=== PATIENT | female | born 1995 | race African-American/Black ===

== ENCOUNTER 2019-11-23 18:47 | Emergency (ER) | payer OTHER, SELFPAY ==
[2019-11-23] VITALS (7 sets, daily range): BP systolic 118–138; BP diastolic 73–98; PULSE 85–118; RESP 10–20; TEMP 36.6; O2SAT 100
--- NOTE | ~2019-11-23 | XR_ITS ---
EXAMINATION: XR chest 2V EXAM DATE: 11/23/2019 19:34 INDICATION: Heart palpitations, racing. Weakness. TECHNIQUE: Frontal and lateral projections of the chest obtained and reviewed. There is no prior robert dy for comparison. FINDINGS: The lungs are clear. There are no pleural effusions. The cardiomediastinal silhouette is within normal limits. There is no pneumothorax suspected. The bones and soft tissues are unremarkab le. IMPRESSION: Normal chest x-ray exam. Reviewed, dictated and finalized at location A. IMPRESSION: Normal chest x-ray exam.
--- NOTE | 2019-11-23 18:54 | ECG_ITS ---
Measurements Intervals [place] Rate: 115 P: 57 MD: 169 QRS: 68 QRSD: 87 T: -19 QT: 321 QTc: 445 Interpretive Statements SINUS TACHYCARDIA BORDERLINE ST-T WAVE ABNORMALITY- ANTEROLAT/INF LEADS ABNORMAL ECG Electronically Signed On 11-23-2019 19:37:48 CDT by Kervin Zuluaga D.O.
[2019-11-23 19:05] LABS: Basophils Percent Auto 0.2 % (0.2-1.2); Eosinophils Percent Auto 0.1 % (0-4.4); Hematocrit 36.8 % (37.0-47.0); Hemoglobin 12.6 g/dL (12.0-15.0); Immature Granulocyte Absolute 0.03 K/mm3 (0.00-0.031); Immature Granulocyte Percent A 0.3 % (0-0.5); Lymphocytes Absolute Auto 1.75 K/mm3 (0.9-3.2); Lymphocytes Percent Auto 16.9 % (18.3-44.2); Mean Corpuscular HGB Conc 34.2 g/dl (32-36); Mean Corpuscular Volume 87.6 fl (80-100); Mean Platelet Volume 12.3 fl (7.4-10.4); Monocytes Absolute Auto 0.7 K/mm3 (0.1-0.6); Neutrophils Absolute Auto 7.8 K/mm3 (1.3-6.7); Neutrophils Percent Auto 75.5 % (45.5-73.1); Platelet Count Result 219 k/mm3 (150-375); Red Cell Distribution Width 12.3 % (11.5-14.5); White Blood Count 10.3 K/mm3 (4.5-10.0)
[2019-11-23 19:14] LABS: INR 1.1; Prothrombin Time 13.7 Seconds (11.1-14.7)
[2019-11-23 19:15] LABS: Partial Thromboplastin Time 24.9 SECONDS (22.3-36.8)
[2019-11-23 19:21] LABS: Anion Gap 11 mmol/L (8-16); Blood Urea Nitrogen 9 mg/dL (7-17); Carbon Dioxide 23 mmol/L (22-30); Chloride 104 mmol/L (98-107); Estimated CRCL calculation 79 ml/min; Estimated Glomerular Filt Rate > 60; Glucose 108 mg/dL (65-105); Potassium 2.9 mmol/L (3.4-5.0); Sodium 138 mmol/L (137-145)
[2019-11-23 19:31] LABS: Troponin I < 0.012 ng/mL (0.000-0.034)
--- NOTE | 2019-11-23 21:18 | ED.ARRPALP ---
HPI - Arrhythmia/Palpitations General Chief Complaint: Arrhythmia/Palpitations Stated Complaint: PALPITATIONS Time Seen by Provider: 11/23/19 21:11 History of Present Illness HPI narrative: Patient presents with fast heart rate for 2 hours. Started at home at rest. She had this before after she delivered her baby. She thinks it might be anxiety. She has no pain. She has not been sick. She has no thyroid disease. She has not taken any diet pills or pseudoephedrine. She does not smoke cigarettes or do drug. She works in [employer] health. She has been following [employer] precautions. She denies any illness, particular any cough fever chills or sweats. She is on control pill for family-planning. She has not had any surgeries. complaint: rapid heart beat Onset (ago): hour(s) Duration: constant Severity: moderate Context: occurred during rest Arrhythmia history: other (History of panic attack after the delivery of her child) Associated symptoms: denies other symptoms Treatments prior to arrival: other (None) Related Data Allergies Allergy/AdvReac Type Severity Reaction Status Date / Time No Known Allergies Allergy Verified 11/23/19 18:53 Review of Systems Review of Systems: Narrative: CONSTITUTIONAL: Denies fever, chills, or sweats. EYES: Denies visual changes, redness, or discharge. ENT: Denies rhinorrhea, congestion, sore throat, or otalgia. CARDIOVASCULAR: Denies chest pain, palpitations, or edema. RESPIRATORY: Denies cough or dyspnea. GASTROINTESTINAL: Denies abdominal pain, nausea, vomiting, or diarrhea. GENITOURINARY: Denies dysuria or hematuria. SKIN: Denies rash or itching. MUSCULOSKELETAL: Denies back pain, joint pain, or myalgia. NEUROLOGIC: Denies headache, numbness, or weakness. PSYCHIATRIC: Denies anxiety or depression. All systems reviewed & are unremarkable except as noted in HPI and below PMFSH Past Medical History Medical History (Updated 11/23/19 @ 22:48 by Coretta South MD) Family planning Hypokalemia Hypopigmentation Palpitations Surgical History Surgical History (Updated 11/23/19 @ 21:21 by Coretta South MD) No pertinent past surgical history Social History Social History (Updated 11/23/19 @ 21:21 by Coretta South MD) Smoking status: Never smoker Alcohol intake: current Alcohol use details: wine Substance use: never Exam Narrative: Exam Narrative: GENERAL: Well-appearing, well-nourished, and in no acute distress. Hyperpigmentation on her face. Tight extensions in her jess HEAD: Normocephalic, atraumatic. EYES: PERRLA and EOMI. ENT: Nares clear, no rhinorrhea or epistaxis. Mucous membranes moist. NECK: Supple. CHEST: Clear to auscultation. No respiratory distress. HEART: Regular rate and rhythm. No murmur heard. Normal peripheral pulses. Heart rate 100. ABDOMEN: Soft, nontender, nondistended, normal active bowel sounds. EXTREMITIES: Normal range of motion. No edema. SKIN: Warm, dry, no rash. NEURO: No focal deficits. Alert and oriented x3. PSYCH: Normal mood and affect. Const: General: no acute distress and alert Orientation/consciousness: patient oriented x3 Course Reevaluation(s) Reevaluation #1: The potassium corrected with 20 mEq of potassium chloride. [id number] with the patient, she is still tachycardic at 105. I will send her to the hand bander and to a medical doctor to see what is the cause of this. Date: 11/23/19 Time: 23:26 Vital Signs Vital signs: Vital Signs Temperature 97.8 F 11/23/19 18:50 Pulse Rate 118 H 11/23/19 18:50 Respiratory Rate 20 11/23/19 18:50 Blood Pressure 133/79 11/23/19 18:50 Pulse Oximetry 100 11/23/19 18:50 Temperature 97.8 F 11/23/19 18:50 Pulse Rate 85 11/23/19 21:48 Respiratory Rate 15 11/23/19 21:48 Blood Pressure 121/80 11/23/19 21:48 Pulse Oximetry 100 11/23/19 21:48 MDM - Arrhythmia/Palpitations Differential Diagnosis Differential diagnosis: Likely palpitation
[2019-11-23] MEDS: POTASSIUM CHLORIDE 20 MEQ TABLET PO (21:20)
[2019-11-23 21:41] LABS: Add Urine Microscopic? YES; Appearance Urine Clear (Clear); Bacteria Urine Trace /hpf; Bilirubin Urine Negative (Negative); Blood Urine Negative (Negative); Color Urine Straw (Yellow); Glucose Urine UA Negative (Negative); Ketones Urine Negative (Negative); Leukocyte Esterase Ur 2+ LEU/UL (Negative); Mucus Urine Rare /lpf; Nitrate Urine Negative (Negative); Protein Urine Negative (Negative); RBC Urine 0-2 /hpf (0-2); Squamous Epithelial Cell Urine Moderate /hpf (Few); Urobilinogen Urine Negative mg/dL (<2.0)
[2019-11-23 22:00] LABS: Amphetamine Screen Urine Negative (Negative); Barbiturate Screen Urine Negative (Negative); Benzodiazepines Screen Urine Negative (Negative); Cannabinoid Screen Urine Negative (Negative); Cocaine Screen Urine Negative (Negative); Methadone Screen Urine Negative (Negative); Opiate Screen Urine Negative (Negative); Phencyclidine Screen Urine Negative (Negative)
[2019-11-23 22:10] LABS: Troponin I < 0.012 ng/mL (0.000-0.034)
--- NOTE | 2019-11-23 22:55 | PC.NURSE ---
called lab to add BMP
[2019-11-23 23:21] LABS: Anion Gap 9 mmol/L (8-16); Blood Urea Nitrogen 8 mg/dL (7-17); Calcium 9.1 mg/dL (8.4-10.2); Carbon Dioxide 24 mmol/L (22-30); Chloride 103 mmol/L (98-107); Estimated CRCL calculation 87 ml/min; Estimated Glomerular Filt Rate > 60; Glucose 104 mg/dL (65-105); Potassium 3.8 mmol/L (3.4-5.0); Sodium 136 mmol/L (137-145)
== END 2019-11-23 23:57 | disposition home or self-care (01) ==
PROVIDERS: Emergency Provider Emergency Medicine
DX: R00.0 Tachycardia, unspecified (principal); E87.6 Hypokalemia; R00.2 Palpitations
CPT/HCPCS: 36415; 71046; 80048; 80307; 81001; 84443; 84484; 85025; 85610; 85730; 93005; 99284; A9270

== ENCOUNTER 2020-01-25 01:54 | Emergency (ER) | payer OTHER, SELFPAY ==
--- NOTE | ~2020-01-25 | XR_ITS ---
EXAMINATION: XR chest 2V 01/25/2020 02:46 INDICATION: Chest pain PROCEDURE: PA and lateral views of the chest COMPARISON: 11/23/2019 FINDINGS: The lungs are clear. The cardiomediastinal silhouette is within normal limits. There are no pleural effusions. There is no pneumothorax suspected. IMPRESSION: 1: NO ACUTE CARDIOPULMONARY DISEASE. Reviewed, dictated and finalized at location A.
[2020-01-25 01:59] VITALS: BP 121/63; PULSE 90; RESP 18; TEMP 36.7; O2SAT 100
--- NOTE | 2020-01-25 02:07 | ED.GENADULT ---
HPI - General Adult General Chief complaint: Unspecified Stated complaint: nausea & cp Time Seen by Provider: 01/25/20 02:00 History of Present Illness HPI narrative: She reports intermittent chest pain for a few weeks. The pain is pressure and burning. Associated with mild nausea. Worse at night. She has been seen and evaluated for this at other facilities previously. Today she reports that the nausea became more severe and she is not able to eat or drink anything. Related Data Home Medications Medication Instructions Recorded Confirmed norethindrone-e.estradiol-iron [Lo tablet 01/25/20 Loestrin Fe] Allergies Allergy/AdvReac Type Severity Reaction Status Date / Time No Known Allergies Allergy Verified 01/25/20 02:23 Review of Systems Review of Systems: All systems reviewed & are unremarkable except as noted in HPI and below Constitutional: Constitutional: Denies fever(s) Eyes: Eyes: Denies change in vision ENT: Reports dizziness Cardiovascular: Cardiovascular: Reports chest pain, Denies rapid heart rate and Denies dyspnea Respiratory: Respiratory: Denies dyspnea Gastrointestinal: Gastrointestinal: Reports heartburn, Reports nausea and Denies vomiting Neurologic: Denies dizziness, Denies numbness and Denies weakness [facility] Past Medical History Medical History Family planning Hypokalemia Hypopigmentation Palpitations Surgical History Surgical History No pertinent past surgical history Social History Social History Smoking status: Never smoker Alcohol intake: current Substance use: never Exam Const: General: healthy appearing, no acute distress and alert Orientation/consciousness: patient oriented x3 HENMT: Head: normal to inspection Neck: Neck: normal visual inspection and no lymphadenopathy Chest: Chest palpation & inspection: no tenderness Resp: Effort & Inspection: normal respiratory effort Auscultation: clear to auscultation bilaterally, no rales, no rhonchi and no wheezes Cardio: Rate: regular rate Rhythm: regular rhythm Heart sounds: no murmurs GI: Inspection: non-distended GI Palp: Yes Soft to palpation and Yes Tenderness to palpation present (GI) (mild, epigastric) Skin: General skin exam: normal color Neuro: General: patient oriented x3 and moves all extremities Speech: normal speech Extrem: General: no edema Psych: Appearance: well kempt Affect: normal affect Course Vital Signs Vital signs: Vital Signs Temperature 36.7 C 01/25/20 01:59 Pulse Rate 90 01/25/20 01:59 Respiratory Rate 18 01/25/20 01:59 Blood Pressure 121/63 01/25/20 01:59 Pulse Oximetry 100 01/25/20 01:59 Temperature 36.8 C 01/25/20 03:43 Pulse Rate 78 01/25/20 03:43 Respiratory Rate 16 01/25/20 03:43 Blood Pressure 118/66 01/25/20 03:43 Pulse Oximetry 100 01/25/20 03:43 Medical Decision Making MDM Narrative Medical decision making narrative: SHe is low risk for anything worrisome. Feeling better after GI cocktail. I will discharge her with protonix. Medical Records Medical records reviewed: Yes I reviewed the patient's medical records. Vital Signs Vital Signs: Vital Signs Temperature 36.7 C 01/25/20 01:59 Pulse Rate 90 01/25/20 01:59 Respiratory Rate 18 01/25/20 01:59 Blood Pressure 121/63 01/25/20 01:59 Pulse Oximetry 100 01/25/20 01:59 Temperature 36.8 C 01/25/20 03:43 Pulse Rate 78 01/25/20 03:43 Respiratory Rate 16 01/25/20 03:43 Blood Pressure 118/66 01/25/20 03:43 Pulse Oximetry 100 01/25/20 03:43 Lab Data Labs: UCG Bedside Result Negative Reference Range: Negative Imaging Data Attestation: I personally reviewed and interpreted this imaging study as f
--- NOTE | 2020-01-25 02:28 | ECG_ITS ---
Measurements Intervals [place] Rate: 76 P: 2 DE: 144 QRS: 53 QRSD: 87 T: -19 QT: 370 QTc: 418 Interpretive Statements SINUS RHYTHM NONSPECIFIC ST-T WAVE ABNORMALITY- ANTEROLAT/INF LEADS BORDERLINE ECG Electronically Signed On 01-25-2020 7:44:27 CDT by Kervin Zuluaga D.O.
[2020-01-25] MEDS: BELLADONNA ALK/PHENOB ELIX 10 ML, MAG HYDROX/ALUMINUM HYD/SIMETH 30 ML, LIDOCAINE HCL 2... PO (03:02)
[2020-01-25] MEDS: PANTOPRAZOLE 40 MG TABLET PO (03:02)
[2020-01-25 03:43] VITALS: BP 118/66; PULSE 78; RESP 16; TEMP 36.8; O2SAT 100
== END 2020-01-25 03:44 | disposition home or self-care (01) ==
PROVIDERS: Emergency Provider Emergency Medicine
DX: K21.9 Gastro-esophageal reflux disease without esophagitis (principal); R94.31 Abnormal electrocardiogram [ECG] [EKG]
CPT/HCPCS: 71046; 81025; 93005; 99283; A9270

== ENCOUNTER 2020-01-27 22:32 | Emergency (ER) | payer OTHER, SELFPAY ==
[2020-01-27 22:33] VITALS: BP 128/67; PULSE 84; RESP 16; TEMP 36.3; O2SAT 100
--- NOTE | 2020-01-28 00:32 | PC.NURSE ---
ON 01/28/2020 AT 0031 THIS PT APPROACHES THIS INTAKE NURSE DESK AND STATES THAT SHE IS GOING HOME TO GO TO BED. PT VISUALIZED AMBULATING OUT OF ED ENTRANCE INDEPENDENTLY WITH A STEADY GAIT.
== END 2020-01-28 00:32 | disposition left against medical advice (07) ==
LOC: ANHED 01-28 00:35
DX: J02.9 Acute pharyngitis, unspecified (principal)
CPT/HCPCS: 99199

== ENCOUNTER 2020-01-29 16:15 | Emergency (ER) | payer OTHER, SELFPAY ==
[2020-01-29 16:15] VITALS: BP 112/65; PULSE 75; RESP 16; TEMP 36.9; O2SAT 97
--- NOTE | 2020-01-29 16:44 | ED.DENTAL ---
HPI - Dental/Oral General Chief complaint: Dental/Oral Stated complaint: Tooth Pain Time Seen by Provider: 01/29/20 16:30 Source: patient and RN notes reviewed Mode of arrival: ambulatory Limitations: no limitations History of Present Illness HPI Narrative: Patient presents today complaining of bilateral upper jaw/tooth pain. She has had multiple broken teeth for the last couple of years, but pain over the last 2 weeks that is continuing to worsen. Denies 1 specific tooth affected. Does report a bad taste in her mouth. Denies fever, shortness of breath, or difficulty swallowing. No cold or heat sensitivity. States she has an appointment in 6 days with a dentist. Currently rates her pain 09/24 and has been taking ibuprofen without relief. MD Complaint: tooth pain Related Data Home Medications Medication Instructions Recorded Confirmed pantoprazole [Protonix] 40 mg PO HS 01/29/20 01/29/20 Allergies Allergy/AdvReac Type Severity Reaction Status Date / Time No Known Allergies Allergy Verified 01/29/20 16:30 Review of Systems Review of Systems: Narrative: CONSTITUTIONAL: Denies body aches, fever, chills, or sweats. EYES: Denies visual changes, redness, or discharge. ENT: Denies rhinorrhea, congestion, sore throat, or otalgia.+ Tooth pain CARDIOVASCULAR: Denies chest pain, palpitations, or edema. RESPIRATORY: Denies cough or dyspnea. GASTROINTESTINAL: Denies abdominal pain, nausea, vomiting, or diarrhea. GENITOURINARY: Denies dysuria or hematuria. SKIN: Denies rash, itching, or wounds. MUSCULOSKELETAL: Denies back pain, joint pain, or myalgia. NEUROLOGIC: Denies headache, numbness, tingling, or weakness. PSYCH: Denies depression or anxiety. [facility] Past Medical History Medical History Family planning Hypokalemia Hypopigmentation Palpitations Surgical History Surgical History No pertinent past surgical history Social History Social History Smoking status: Never smoker Alcohol intake: current Substance use: never Gender identity (if verbalized by the patient): Female Comments At time of signature, I have reviewed and agree with nursing past medical, surgical, social and family history unless otherwise noted. Please see nursing chart for further information. There is no relevant family history pertinent to the presenting complaint Exam Narrative: Exam Narrative: GENERAL: Well-appearing, well-nourished, and in no acute distress. HEAD: Normocephalic, atraumatic. EYES: EOMI. No redness or drainage. Conjunctivae normal. ENT: Mucous membranes pink and moist. Nares clear. No rhinorrhea. Throat normal. Uvula midline. Erythema and mild edema to the left upper gumline without any obvious periapical abscess. Patient has some gross dental decay with multiple teeth that have small amounts of enamel missing, likely related to patient's tongue ring. NECK: Normal AROM. Supple. No lymphadenopathy. CHEST: No respiratory distress. Clear to auscultation. HEART: Regular rate and rhythm. No murmur appreciated. Normal peripheral pulses. EXTREMITIES: Normal range of motion. No edema. SKIN: Warm, dry, no rash. Capillary refill normal. Normal skin turgor. NEURO: No focal deficits. Alert and oriented x3. Gait steady. PSYCH: Normal affect. No signs of depression or anxiety. Course Vital Signs Vital signs: Vital Signs Temperature 98.4 F 01/29/20 16:15 Pulse Rate 75 01/29/20 16:15 Respiratory Rate 16 01/29/20 16:15 Blood Pressure 112/65 01/29/20 16:15 Pulse Oximetry 97 01/29/20 16:15 Temperature 98.4 F 01/29/20 16:15 Pulse Rate 75 01/29/20 16:15 Respiratory Rate 16 01/29/20 16:15 Blood Pressure 112/65 01/29/20 16:15 Pulse Oximetry 97 01/29/20 16:15 Reviewed MDM - Dental/Oral Differential Diagnosis Di
== END 2020-01-29 16:48 | disposition home or self-care (01) ==
PROVIDERS: Emergency Provider Nurse Practitioner
DX: K04.7 Periapical abscess without sinus (principal)
CPT/HCPCS: 99213; G0463

== ENCOUNTER 2020-02-21 23:30 | Emergency (ER) | payer OTHER, SELFPAY ==
--- NOTE | ~2020-02-21 | CT_ITS ---
EXAMINATION: CT abdomen pelvis w con INDICATION: Right lower quadrant abdominal pain TECHNIQUE: Computed tomographic images of the abdomen and pelvis were obtained after the administrati on of 100 cc of Omnipaque 350 intravenous contrast. The dose-length product (DLP) was 333.06 mGy-cm. Automated exposure control and iterative reconstruction technique were employed. COMPARISON: None available FINDINGS: The lung bases are clear. The heart size is normal. The liver, spleen, pancreas, gallbladde r, and adrenal glands are normal. The kidneys are unremarkable. No pathologically enlarged abdominal or pelvic lymph nodes are identified. There is no free intraperitoneal gas or evidence of bowel obstr uction. The appendix is normal. IMPRESSION: 1. No CT correlate for the patient's symptoms. Reviewed, dictated and finalized at location A. [employer]
[2020-02-21 23:33] VITALS: BP 115/60; PULSE 76; RESP 16; TEMP 36.6; O2SAT 96
--- NOTE | 2020-02-21 23:39 | ED.ABDPAIN ---
HPI - Abdominal Pain General Chief Complaint: Abdominal Pain Stated Complaint: R flank pain/ vaginal irritation Time Seen by Provider: 02/21/20 23:39 Source: patient Mode of arrival: ambulatory Limitations: no limitations History of Present Illness HPI narrative: Patient is a 24-year-old female who presents for evaluation of right lower quadrant abdominal pain. Pain is mild to moderate in nature with radiation to the right flank. Associated with vaginal discharge and vaginal irritation. She denies vaginal bleeding. States last menstrual period was 1 week ago and normal in length. She denies history of sexually transmitted infection or ovarian cyst. She states that she is monogamous with her fianc? who is also monogamous with her to her knowledge. She denies any dysuria or hematuria. No fever or chills. No nausea or vomiting. Related Data Home Medications Medication Instructions Recorded Confirmed norethindrone-e.estradiol-iron [Lo 1 tablet PO DAILY 02/21/20 Loestrin Fe] Allergies Allergy/AdvReac Type Severity Reaction Status Date / Time No Known Allergies Allergy Verified 02/21/20 23:57 Review of Systems Review of Systems: Narrative: CONSTITUTIONAL: Denies fever, chills, or sweats. CARDIOVASCULAR: Denies chest pain RESPIRATORY: Denies cough or dyspnea. GASTROINTESTINAL: Reports right lower quadrant abdominal pain without nausea, vomiting or diarrhea GENITOURINARY: Denies dysuria or hematuria. Reports vaginal discharge. SKIN: Denies rash or itching. MUSCULOSKELETAL: Denies back pain, joint pain, or myalgia. NEUROLOGIC: Denies headache, numbness, or weakness. [facility] Past Medical History Medical History Family planning Hypokalemia Hypopigmentation Palpitations Surgical History Surgical History No pertinent past surgical history Social History Social History Smoking status: Never smoker Alcohol intake: current Substance use: never Gender identity (if verbalized by the patient): Female Exam Narrative: Exam Narrative: GENERAL: Awake, alert, conversant HEAD: Normocephalic, atraumatic. EYES: PERRLA and EOMI. ENT: Nares clear, no rhinorrhea or epistaxis. Mucous membranes moist. NECK: Supple. CHEST: No respiratory distress, breathing even and non labored HEART: Regular rate, sinus rhythm ABDOMEN:Non distended, mild right lower quadrant tenderness, no rebound, no rigidity, no guarding, negative McBurney's point tenderness, negative Tello sign : Labia majora and minora normal without lesions. Vagina without blood. No cervical motion tenderness. Cervix mildly erythematous. No adnexal tenderness or fullness bilaterally. There is mucopurulent discharge present. EXTREMITIES: Normal range of motion. No edema. SKIN: Warm, dry, no rash. NEURO:No focal deficits. Alert and oriented x3 Course Vital Signs Vital signs: Vital Signs Temperature 36.6 C 02/21/20 23:33 Pulse Rate 76 02/21/20 23:33 Respiratory Rate 16 02/21/20 23:33 Blood Pressure 115/60 02/21/20 23:33 Pulse Oximetry 96 02/21/20 23:33 Temperature 36.6 C 02/21/20 23:33 Pulse Rate 76 02/21/20 23:33 Respiratory Rate 17 02/21/20 23:49 Blood Pressure 115/60 02/21/20 23:33 Pulse Oximetry 96 02/21/20 23:33 MDM - Abdominal Pain MDM Narrative Medical decision making narrative: Patient presenting for evaluation of lower abdominal pain as well as vaginal discharge. The time of assessment, ABCs are intact and vital signs are stable. Exam, patient with mild right lower quadrant tenderness, there is purulent discharge and mild cervical erythema without talha cervical motion tenderness. Given symptoms, I was concerned for possible pelvic inflammatory disease. Given patient's age, she did consent to receive antibiotic treatment with intramuscular Roce
[2020-02-21 23:49] VITALS: RESP 17
[2020-02-22 00:22] LABS: Add Urine Microscopic? YES; Appearance Urine Clear (Clear); Bacteria Urine Trace /hpf; Bilirubin Urine Negative (Negative); Blood Urine Negative (Negative); Color Urine Yellow (Yellow); Glucose Urine UA Negative (Negative); Ketones Urine Negative (Negative); Leukocyte Esterase Ur 3+ LEU/UL (Negative); Mucus Urine Few /lpf; Nitrate Urine Negative (Negative); Protein Urine 1+ mg/dL (Negative); Squamous Epithelial Cell Urine Many /hpf (Few)
[2020-02-22 00:22] LABS: Alanine Aminotransferase 19 U/L (4-35); Albumin Level 4.2 g/dL (3.5-5.1); Alkaline Phosphatase 65 U/L (38-126); Anion Gap 7 mmol/L (8-16); Aspartate Amino Transferase 23 U/L (14-36); Bilirubin,Total 0.3 mg/dL (0.2-1.3); Blood Urea Nitrogen 11 mg/dL (7-17); Calcium 9.2 mg/dL (8.4-10.2); Carbon Dioxide 28 mmol/L (22-30); Chloride 103 mmol/L (98-107); Estimated CRCL calculation 70 ml/min; Estimated Glomerular Filt Rate > 60; Glucose 98 mg/dL (65-105); Lipase 95 U/L (23-300); Potassium 3.8 mmol/L (3.4-5.0); Sodium 138 mmol/L (137-145)
[2020-02-22 00:23] LABS: Basophils Percent Auto 0.3 % (0.2-1.2); Eosinophils Percent Auto 0.3 % (0-4.4); Hematocrit 35.8 % (37.0-47.0); Immature Granulocyte Absolute 0.02 K/mm3 (0.00-0.031); Immature Granulocyte Percent A 0.2 % (0-0.5); Lymphocytes Absolute Auto 1.92 K/mm3 (0.9-3.2); Lymphocytes Percent Auto 19.9 % (18.3-44.2); Mean Corpuscular HGB Conc 33.5 g/dl (32-36); Mean Corpuscular Hemoglobin 29.6 pg (26-34); Mean Corpuscular Volume 88.4 fl (80-100); Mean Platelet Volume 12.6 fl (7.4-10.4); Monocytes Absolute Auto 0.7 K/mm3 (0.1-0.6); Monocytes Percent Auto 6.7 % (2.6-8.5); Neutrophils Percent Auto 72.6 % (45.5-73.1); Platelet Count Result 203 k/mm3 (150-375); Red Blood Count 4.05 M/mm3 (4.2-5.4); Red Cell Distribution Width 11.6 % (11.5-14.5); White Blood Count 9.7 K/mm3 (4.5-10.0)
[2020-02-22 00:27] LABS: Specific Grav Ur 1.033 (1.001-1.035)
[2020-02-22] MEDS: ONDANSETRON INJ 4 MG/2 ML VIAL IV PUSH (00:36)
[2020-02-22] MEDS: SODIUM CHLORIDE 0.9% IV 1,000 ML 999 ML IV CONT (00:37)
[2020-02-22] MEDS: cefTRIAXone 250 MG VIAL IM (01:16)
[2020-02-22] MEDS: LIDOCAINE HCL 1% LOCAL INJ 20 ML VIAL (01:17)
[2020-02-22 02:20] VITALS: BP 105/62; PULSE 76; RESP 17; O2SAT 100
== END 2020-02-22 02:20 | disposition home or self-care (01) ==
PROVIDERS: Emergency Provider Emergency Medicine
DX: N73.9 Female pelvic inflammatory disease, unspecified (principal)
CPT/HCPCS: 36415; 74177; 80053; 81001; 81025; 83690; 85025; 87070; 87086; 87491; 87591; 87808; 96361; 96372; 96374; 96375; 99284; J0131; J0696; J2405; J7030; Q9967

== ENCOUNTER 2020-05-29 14:58 | Emergency (ER) | payer OTHER, SELFPAY ==
--- NOTE | ~2020-05-29 | US_ITS ---
EXAMINATION: US OB <= 14 weeks fetus DATE: 05/29/2020 15:30 INDICATION: First trimester dating TECHNIQUE: Real-time pelvic transabdominal and transvaginal ultrasound was performed. COMPARISON: None. FINDINGS: The uterus measures 9.4 x 8.0 x 6.4 cm. There is an intrauterine gestational sac. There is a 1.7 x 1.0 x 1.2 cm hypoechoic area adjacent to the gestational sac. A yolk sac is identified. Feta l heart motion is identified measuring 130 beats per minute (bpm) by M-mode Doppler. The crown rump length measures 3 mm , which correlates with an estimated gestational age of 6 weeks and 0 day(s ) (+/-) 4 day(s). The right ovary measures 1.9 x 1.9 x 2.4 cm. The left ovary measures 3.8 x 2.9 x 2.6 cm. There is nor mal vascular flow in the ovaries. There is no free fluid in the pelvis. IMPRESSION: 1. Live intrauterine with an estimated gestational age of 6 weeks and 0 day(s) (+/-) 4 day( s) and an estimated delivery date of . 2. Small subchorionic hemorrhage. Reviewed, dictated and finalized at location A. 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 Live intrauterine with an estimated gestational age of 6 weeks and 0 day(s) (+/-) 4 day(s) and an estimated delivery date of . 2. Small subchorionic hemorrhage.
[2020-05-29 14:59] VITALS: BP 111/48; PULSE 72; RESP 18; TEMP 35.7; O2SAT 98
[2020-05-29 15:13] LABS: Basophils Percent Auto 0.3 % (0.2-1.2); Eosinophils Percent Auto 0.3 % (0-4.4); Hematocrit 36.4 % (37.0-47.0); Hemoglobin 12.5 g/dL (12.0-15.0); Immature Granulocyte Absolute 0.02 K/mm3 (0.00-0.031); Immature Granulocyte Percent A 0.3 % (0-0.5); Lymphocytes Percent Auto 17.9 % (18.3-44.2); Mean Corpuscular HGB Conc 34.3 g/dl (32-36); Mean Corpuscular Volume 87.5 fl (80-100); Mean Platelet Volume 11.8 fl (7.4-10.4); Monocytes Absolute Auto 0.6 K/mm3 (0.1-0.6); Monocytes Percent Auto 7.2 % (2.6-8.5); Neutrophils Absolute Auto 5.8 K/mm3 (1.3-6.7); Platelet Count Result 191 k/mm3 (150-375); Red Blood Count 4.16 M/mm3 (4.2-5.4); Red Cell Distribution Width 11.6 % (11.5-14.5); White Blood Count 7.8 K/mm3 (4.5-10.0)
[2020-05-29 15:30] LABS: Potassium 3.7 mmol/L (3.4-5.0)
--- NOTE | 2020-05-29 15:39 | ED.NAVMDI ---
HPI - Nausea/Vomiting/Diarrhea General Chief complaint: Nausea/Vomiting/Diarrhea Stated complaint: nausea and cramping, Time Seen by Provider: 05/29/20 15:05 Source: patient Mode of arrival: ambulatory Limitations: no limitations History of Present Illness HPI Narrative: A 25-year-old female comes into the emergency department today with complaints of nausea and vomiting. Patient states that she is approximately 6 weeks . She is a G4, P3. Patient does endorse some abdominal and pelvic pain. She denies any vaginal discharge at this time. 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 She notes that she has had nausea and vomiting throughout the day. She is denying any bile or blood in the vomit. Related Data Allergies Allergy/AdvReac Type Severity Reaction Status Date / Time No Known Allergies Allergy Verified 05/29/20 15:50 Review of Systems Review of Systems: Narrative: CONSTITUTIONAL: Denies fever, chills, or sweats. EYES: Denies visual changes, redness, or discharge. ENT: Denies rhinorrhea, congestion, sore throat, or otalgia. CARDIOVASCULAR: Denies chest pain, palpitations, or edema. RESPIRATORY: Denies cough or dyspnea. GASTROINTESTINAL: Denies abdominal pain or diarrhea. Endorses nausea and vomiting GENITOURINARY: Denies dysuria or hematuria. SKIN: Denies rash or itching. MUSCULOSKELETAL: Denies back pain, joint pain, or myalgia. NEUROLOGIC: Denies headache, numbness, dizziness, or weakness. PSYCHIATRIC: Denies anxiety or depression. [facility] Past Medical History Medical History Family planning Hypokalemia Hypopigmentation Palpitations Surgical History Surgical History No pertinent past surgical history Social History Social History Smoking status: Never smoker Alcohol intake: current Substance use: never Gender identity (if verbalized by the patient): Female Exam Narrative: Exam Narrative: GENERAL: Well-appearing, well-nourished, and in no acute distress. HEAD: Normocephalic, atraumatic. EYES: PERRLA and EOMI. ENT: Nares clear, no rhinorrhea or epistaxis. Mucous membranes moist. NECK: Supple. No adenopathy or masses. No carotid bruits or JVD CHEST: Clear to auscultation. No respiratory distress. No wheezes rales or rhonchi HEART: Regular rate and rhythm. No murmur heard. Normal peripheral pulses. ABDOMEN: Soft, nontender, nondistended, normal active bowel sounds. EXTREMITIES: Normal range of motion. No edema. SKIN: Warm, dry, no rash. NEURO: No focal deficits. Alert and oriented x3. PSYCH: Normal mood and affect. Course Reevaluation(s) Reevaluation #1: Reevaluated patient. She stated that after the first dose of Zofran she was feeling much better. She notes that she is still feeling a little bit nauseated. Offered second dose of Zofran and she did accept. Time: 17:07 Vital Signs Vital signs: Vital Signs Temperature 35.7 C L 05/29/20 14:59 Pulse Rate 72 05/29/20 14:59 Respiratory Rate 18 05/29/20 14:59 Blood Pressure 111/48 L 05/29/20 14:59 Pulse Oximetry 98 05/29/20 14:59 Temperature 35.7 C L 05/29/20 14:59 Pulse Rate 68 05/29/20 16:04 Respiratory Rate 16 05/29/20 16:02 Blood Pressure 104/57 L 05/29/20 16:03 Pulse Oximetry 100 05/29/20 16:02 MDM - Nausea/Vomiting/Diarrhea MDM Narrative Medical decision making narrative: In brief this 25-year-old female came into the emergency department essentially for what sounds like morning sickness. She is early in the and is having a lot of nausea. Patient was given IV fluids and a dose of Zofran, her symptoms have markedly improved with this. Patient will get second dose of Zofran prior to discharge as well as a prescription for this upon discharge. Review of her ultrasound and laboratory data does not show any
[2020-05-29 15:54] LABS: Alanine Aminotransferase 16 U/L (4-35); Albumin Level 4.2 g/dL (3.5-5.1); Alkaline Phosphatase 51 U/L (38-126); Anion Gap 6 mmol/L (8-16); Aspartate Amino Transferase 23 U/L (14-36); Bilirubin,Total 0.6 mg/dL (0.2-1.3); Blood Urea Nitrogen 6 mg/dL (7-17); Calcium 9.1 mg/dL (8.4-10.2); Carbon Dioxide 26 mmol/L (22-30); Chloride 103 mmol/L (98-107); Estimated CRCL calculation 95 ml/min; Estimated Glomerular Filt Rate > 60; Glucose 97 mg/dL (65-105); Lipase 67 U/L (23-300); Sodium 135 mmol/L (137-145)
[2020-05-29] MEDS: ONDANSETRON INJ 4 MG/2 ML VIAL IV PUSH (16:00)
[2020-05-29] MEDS: LACTATED RINGERS 1,000 ML 999 ML IV CONT (16:01)
[2020-05-29 16:02] VITALS: BP 99/58; PULSE 60; RESP 16; O2SAT 100
[2020-05-29 16:03] VITALS: BP 104/57; BP 99/58; PULSE 60; PULSE 68
[2020-05-29 16:04] VITALS: PULSE 68
[2020-05-29 17:48] VITALS: BP 113/60; PULSE 68; RESP 16; O2SAT 99
== END 2020-05-29 17:50 | disposition home or self-care (01) ==
PROVIDERS: Emergency Medicine; Emergency Provider Emergency Medicine; Referring Provider Emergency Medicine
DX: O21.9 Vomiting of pregnancy, unspecified (principal); O99.281 Endocrine, nutritional and metabolic diseases complicating pregnancy, first trimester; E86.0 Dehydration; Z3A.01 Less than 8 weeks gestation of pregnancy
CPT/HCPCS: 36415; 76801; 80053; 83690; 85025; 96361; 96374; 99284; J2405; J7120

== ENCOUNTER 2020-07-01 19:31 | Emergency (ER) | payer OTHER, SELFPAY ==
--- NOTE | 2020-07-01 19:38 | ED.URI ---
HPI - URI/Sore Throat General Chief Complaint: Upper Respiratory Infection Stated Complaint: headache/congestion loss of taste in smell/body ac Time Seen by Provider: 07/01/20 19:47 Source: patient and RN notes reviewed Mode of arrival: ambulatory Limitations: no limitations History of Present Illness HPI Narrative: 25-year-old female who is 11 weeks presents with concern for loss of taste and smell, headache, nasal congestion, body aches for 2 days. She denies any known sick contacts. Denies any intervention, reports she did not know what she can take. Reports her children both had colds last week that they have gotten over. MD elicited complaint: nasal congestion Related Data Home Medications Medication Instructions Recorded Confirmed PNV,calcium 59-lvxc-ybzid acid tablet 07/01/20 07/01/20 [ Vitamin Plus Low Iron] Allergies Allergy/AdvReac Type Severity Reaction Status Date / Time No Known Allergies Allergy Verified 07/01/20 19:51 Review of Systems Review of Systems: Narrative: CONSTITUTIONAL: Denies malaise, chills, sweats, or fever. EYES: Denies visual changes, redness, or discharge. ENT: Reports rhinorrhea, congestion, sore throat. Denies sinus pain, otalgia. CARDIOVASCULAR: Denies chest pain, palpitations, or edema. RESPIRATORY: Denies cough or dyspnea. GASTROINTESTINAL: Denies abdominal pain, nausea, vomiting, diarrhea SKIN: Denies rash or itching. MUSCULOSKELETAL: Reports myalgia. NEUROLOGIC: Reports headache. All systems reviewed & are unremarkable except as noted in HPI and below PMFSH Past Medical History Medical History Family planning Hypokalemia Hypopigmentation Palpitations Surgical History Surgical History No pertinent past surgical history Social History Social History Smoking status: Never smoker Alcohol intake: current Substance use: never Gender identity (if verbalized by the patient): Female Comments At time of signature, agree with nursing past medical, surgical, social and family history. There is no relevant family history pertinent to the presenting complaint Exam Narrative: Exam Narrative: GENERAL: Well-appearing, well-nourished, and in no acute distress. HEAD: Normocephalic EYES: PERRLA, conjunctivae clear ENT: Nares clear, turbinates edematous and erythematous, clear discharge. Mucous membranes moist. TM pearly perry with dull light reflex bilaterally; no tragal tenderness. Oropharynx erythematous without lesions. Tonsils not enlarged and without exudate, no drooling, no hoarseness, no trismus, uvula midline. NECK: Supple. No lymphadenopathy CHEST: Clear to auscultation, breath sounds equal. No wheezing, rhonchi, rales, or stridor. No respiratory distress, speaks in full sentences. HEART: Regular rate and rhythm. No murmur heard. SKIN: Warm, dry, no rash. NEURO: Alert and oriented x3. PSYCH: Normal mood and affect Course Course Emergency Course: Patient is aware of diagnosis, understands and agrees to treatment plan. Anticipatory guidance given. Patient agrees to follow-up as directed and is aware of reasons to seek care at the emergency department. Portions of this record may have been created with voice recognition software Vital Signs Vital signs: Vital Signs Temperature 98.1 F 07/01/20 19:46 Pulse Rate 86 07/01/20 19:46 Respiratory Rate 16 07/01/20 19:46 Blood Pressure 109/68 07/01/20 19:46 Pulse Oximetry 100 07/01/20 19:46 Temperature 98.1 F 07/01/20 19:46 Pulse Rate 86 07/01/20 19:46 Respiratory Rate 16 07/01/20 19:46 Blood Pressure 109/68 07/01/20 19:46 Pulse Oximetry 100 07/01/20 19:46 Reviewed. MDM - URI/Sore Throat MDM Narrative Medical decision making narrative: Differential diagnosis considered: Ann virus, strep pharyngitis, kee
[2020-07-01 19:46] VITALS: BP 109/68; PULSE 86; RESP 16; TEMP 36.7; O2SAT 100
[2020-07-03 19:28] LABS: SARS-CoV-2 RNA PCR Negative
== END 2020-07-01 20:08 | disposition home or self-care (01) ==
PROVIDERS: Emergency Provider Nurse Practitioner
DX: O99.511 Diseases of the respiratory system complicating pregnancy, first trimester (principal); Z3A.11 11 weeks gestation of pregnancy; Z20.822 Contact with and (suspected) exposure to COVID-19
CPT/HCPCS: 87081; 87426; 87880; 99213; C9803; G0463; U0003; U0005

== ENCOUNTER 2020-12-28 14:45 | Emergency (ER) | payer OTHER, SELFPAY ==
[2020-12-28 14:54] VITALS: BP 135/80; PULSE 73; RESP 17; TEMP 36.6; O2SAT 100
--- NOTE | 2020-12-28 15:42 | ED.URI ---
HPI - URI/Sore Throat General Chief Complaint: Upper Respiratory Infection Stated Complaint: Tonsils are swollen Time Seen by Provider: 12/28/20 15:08 Source: patient Mode of arrival: ambulatory Limitations: no limitations History of Present Illness HPI Narrative: This is a 25-year-old female that presents the emergency department for sore throat since yesterday. Reports today she noted that her throat was red and swollen which prompted her to be seen. Denies fever, cough, or loss of sense of taste or smell. Related Data Home Medications Medication Instructions Recorded Confirmed PNV,calcium 14-fqxq-mcycb acid tablet 07/01/20 07/01/20 [ Vitamin Plus Low Iron] Allergies Allergy/AdvReac Type Severity Reaction Status Date / Time No Known Allergies Allergy Verified 07/01/20 19:51 Review of Systems Review of Systems: CONSTITUTIONAL: Denies fever ENT: Reports sore throat. Denies rhinorrhea, congestion, or otalgia. RESPIRATORY: Denies cough All systems reviewed & are unremarkable except as noted in HPI and below PMFSH Past Medical History Medical History Family planning Hypokalemia Hypopigmentation Palpitations Surgical History Surgical History No pertinent past surgical history Social History Social History Smoking status: Never smoker Alcohol intake: current Alcohol use details: wine Substance use: never Gender identity (if verbalized by the patient): Female Exam Narrative: GENERAL: Well-appearing, well-nourished, and in no acute distress. HEAD: Normocephalic, atraumatic. EYES: EOMI. ENT: Nares clear, no rhinorrhea or epistaxis. Mucous membranes moist. Oropharynx with mild, symmetric tonsillar hypertrophy, no exudate or other lesions. Bilateral TMs pearly perry non-bulging NECK: Supple. No adenopathy or masses. CHEST: Clear to auscultation. No respiratory distress. No wheezes rales or rhonchi HEART: Regular rate and rhythm. No murmur heard. Normal peripheral pulses. EXTREMITIES: Normal range of motion. No edema. SKIN: Warm, dry, no rash. NEURO: No focal deficits. Alert and oriented x3. PSYCH: Normal mood and affect Course Vital Signs Vital signs: Vital Signs Temperature 97.8 F 12/28/20 14:54 Pulse Rate 73 12/28/20 14:54 Respiratory Rate 17 12/28/20 14:54 Blood Pressure 135/80 12/28/20 14:54 Pulse Oximetry 100 12/28/20 14:54 Temperature 97.8 F 12/28/20 14:54 Pulse Rate 73 12/28/20 14:54 Respiratory Rate 17 12/28/20 14:54 Blood Pressure 135/80 12/28/20 14:54 Pulse Oximetry 100 12/28/20 14:54 MDM - URI/Sore Throat MDM Narrative Medical decision making narrative: Patient presents the emergency department for sore throat ongoing since yesterday. She is afebrile and nontoxic-appearing. Vitals are stable. Rapid strep swab is negative. Covid swab will be sent. Patient was instructed on care of viral infection. She is to follow-up with primary care doctor. She was given warnings to return to the ER Lab Data Attestation: I reviewed the patient's lab results. Labs: Strep Screen Presumptive Negative *(Reference Range: Negative)* Critical Care Time Critical Care Time Critical Care Time: No Discharge Plan Discharge Clinical Impression: Person under investigation for severe acute respiratory syndrome coronavirus 2 (SARS-CoV-2) infection Pharyngitis Qualifiers: Pharyngitis/tonsillitis etiology: unspecified etiology Qualified Code(s): J02.9 - Acute pharyngitis, unspecified Patient Disposition: Home, Self-Care Condition: Stable Instructions: Pharyngitis (ED) Additional Instructions: Return to the emergency department for worsening symptoms, or any other concerns Remain well-hydrated, get plenty of rest.
[2020-12-29 20:47] LABS: SARS-CoV-2 RNA PCR Negative
== END 2020-12-28 16:54 | disposition home or self-care (01) ==
PROVIDERS: Physician Assistant; Emergency Provider Family Medicine
DX: Z20.822 Contact with and (suspected) exposure to COVID-19 (principal); J02.9 Acute pharyngitis, unspecified
CPT/HCPCS: 87081; 87880; 99283; C9803; U0003; U0005

== ENCOUNTER 2021-04-11 15:15 | Emergency (ER) | payer OTHER, SELFPAY ==
--- NOTE | ~2021-04-11 | XR_ITS ---
EXAMINATION: XR chest 1V portable DATE: 04/11/2021 18:15 INDICATION: Chest pain. Acid reflux. Anxiety. TECHNIQUE: frontal view of the chest was obtained. COMPARISON: Chest radiograph dated 01/25/2020 FINDINGS: The lungs are clear with no focal airspace opacities, pulmonary edema, pleural effusion or pneumothor ax. The cardiomediastinal silhouette is normal. Visualized bones and soft tissues are unremarkable. IMPRESSION: 1. Normal chest radiograph. Reviewed, dictated and finalized at location H. [facility] IMPRESSION: 1. Normal chest radiograph.
[2021-04-11 15:22] VITALS: BP 114/74; PULSE 95; RESP 18; TEMP 36.4; O2SAT 100
--- NOTE | 2021-04-11 18:01 | ECG_ITS ---
Measurements Intervals [place] Rate: 92 P: 0 MA: 129 QRS: 68 QRSD: 86 T: 1 QT: 352 QTc: 436 Interpretive Statements SINUS RHYTHM NONSPECIFIC T-WAVE ABNORMALITY- INFERIOR LEADS BASELINE ARTIFACT- V5 BORDERLINE ECG Electronically Signed On 04-11-2021 20:13:02 [employer] by Kervin Zuluaga D.O.
--- NOTE | 2021-04-11 18:16 | ED.ARRPALP ---
HPI - Arrhythmia/Palpitations General Chief Complaint: Anxiety Stated Complaint: heart racing Time Seen by Provider: 04/11/21 17:16 Source: patient Mode of arrival: EMS Limitations: no limitations History of Present Illness HPI narrative: Patient is 26 years old -D[place] female came by ambulance because of palpitation, shaking, lightheadedness, prior to arrival to the emergency room. History of anxiety, patient is telling me that her anxiety is worse over the last 2 to 3 days. Also history of GERD. Patient would like to get a CT scan of the chest. Patient denies any smoking, drinking or using drugs Related Data Home Medications Medication Instructions Recorded Confirmed PNV,calcium 04-oisw-rsfvx acid tablet 07/01/20 07/01/20 [ Vitamin Plus Low Iron] Allergies Allergy/AdvReac Type Severity Reaction Status Date / Time No Known Allergies Allergy Verified 07/01/20 19:51 Review of Systems Review of Systems: CONSTITUTIONAL: Denies fever, chills, or sweats. EYES: Denies visual changes, redness, or discharge. ENT: Denies rhinorrhea, congestion, sore throat, or otalgia. CARDIOVASCULAR: Denies chest pain, palpitations, or edema. RESPIRATORY: Denies cough or dyspnea. GASTROINTESTINAL: Denies abdominal pain, nausea, vomiting, or diarrhea. GENITOURINARY: Denies dysuria or hematuria. SKIN: Denies rash or itching. MUSCULOSKELETAL: Denies back pain, joint pain, or myalgia. NEUROLOGIC: Denies headache, numbness, or weakness. PSYCHIATRIC: Denies anxiety or depression. [facility] Past Medical History Medical History Family planning Hypokalemia Hypopigmentation Palpitations Surgical History Surgical History No pertinent past surgical history Social History Social History Smoking status: Never smoker Alcohol intake: current Alcohol use details: wine Substance use: never Gender identity (if verbalized by the patient): Female Exam Narrative: General appearance: Well-developed, well-nourished Skin: Normal color Head: Normocephalic, nontraumatic Eyes: Clear conjunctiva ENT: Oropharynx normal, ears normal, nose normal Neck: Supple, nontender Chest and respiratory: Airway patent, no respiratory distress, no accessory muscle use Heart: Regular rate/rhythm Abdomen: Soft, nontender, no organomegaly, quiet bowel sounds Vascular: Normal peripheral pulses, normal capillary refill. Musculoskeletal: Normal range of motion, nontender back Neurologic: Alert and oriented ?3, [employer] is normal as tested, no gross motor deficit Course Course Emergency Course: Stable Vital Signs Vital signs: Vital Signs Temperature 36.4 C 04/11/21 15:22 Pulse Rate 95 04/11/21 15:22 Respiratory Rate 18 04/11/21 15:22 Blood Pressure 114/74 04/11/21 15:22 Pulse Oximetry 100 04/11/21 15:22 Temperature 36.4 C 04/11/21 15:22 Pulse Rate 95 04/11/21 18:45 Respiratory Rate 16 04/11/21 18:45 Blood Pressure 130/66 04/11/21 18:45 Pulse Oximetry 100 04/11/21 18:45 MDM - Arrhythmia/Palpitations MDM Narrative Medical decision making narrative: Anxiety-like symptoms is my concern. Differential Diagnosis Differential diagnosis: Likely palpitations, anxiety and sinus tachycardia Lab Data Result diagrams: 04/11/21 18:23 04/11/21 18:23 Labs: Lab Results 04/11/21 04/11/21 Range/Units 18:23 18:23 WBC 8.2 (4.5-10.0) K/mm3 RBC 4.36 (4.2-5.4) M/mm3 Hgb 13.1 (12.0-15.0) g/dL Hct 38.2 (37.0-47.0) % MCV 87.6 (80-10
[2021-04-11 18:36] LABS: Basophils Percent Auto 0.2 % (0.2-1.2); Eosinophils Percent Auto 0.1 % (0-4.4); Hematocrit 38.2 % (37.0-47.0); Hemoglobin 13.1 g/dL (12.0-15.0); Immature Granulocyte Absolute 0.02 K/mm3 (0.00-0.031); Immature Granulocyte Percent A 0.2 % (0-0.5); Lymphocytes Absolute Auto 1.29 K/mm3 (0.9-3.2); Lymphocytes Percent Auto 15.7 % (18.3-44.2); Mean Corpuscular HGB Conc 34.3 g/dl (32-36); Mean Corpuscular Volume 87.6 fl (80-100); Monocytes Absolute Auto 0.4 K/mm3 (0.1-0.6); Monocytes Percent Auto 5.1 % (2.6-8.5); Neutrophils Absolute Auto 6.5 K/mm3 (1.3-6.7); Neutrophils Percent Auto 78.7 % (45.5-73.1); Platelet Count Result 216 k/mm3 (150-375); Red Blood Count 4.36 M/mm3 (4.2-5.4); Red Cell Distribution Width 11.6 % (11.5-14.5); White Blood Count 8.2 K/mm3 (4.5-10.0)
[2021-04-11 18:42] LABS: Alanine Aminotransferase 27 U/L (4-35); Albumin Level 4.6 g/dL (3.5-5.1); Alkaline Phosphatase 68 U/L (38-126); Anion Gap 5 mmol/L (8-16); Aspartate Amino Transferase 27 U/L (14-36); Bilirubin,Total 0.5 mg/dL (0.2-1.3); Blood Urea Nitrogen 8 mg/dL (7-17); Calcium 9.1 mg/dL (8.4-10.2); Carbon Dioxide 25 mmol/L (22-30); Chloride 103 mmol/L (98-107); Estimated CRCL calculation 71 ml/min; Estimated Glomerular Filt Rate > 60; Glucose 102 mg/dL (65-110); Potassium 3.6 mmol/L (3.4-5.0); Sodium 133 mmol/L (137-145)
[2021-04-11] MEDS: LORazepam (*CRX) 0.5 MG TABLET 1 MG PO (18:44)
[2021-04-11 18:45] VITALS: BP 130/66; PULSE 95; RESP 16; O2SAT 100
[2021-04-11 19:06] LABS: Troponin I < 0.012 ng/mL (0.000-0.034)
== END 2021-04-11 19:20 | disposition home or self-care (01) ==
PROVIDERS: Emergency Provider Emergency Medicine
DX: R00.2 Palpitations (principal); K21.9 Gastro-esophageal reflux disease without esophagitis; F41.9 Anxiety disorder, unspecified
CPT/HCPCS: 36415; 71045; 80053; 84443; 84484; 85025; 93005; 99284; A9270

== ENCOUNTER 2021-08-20 18:45 | Emergency (ER) | payer OTHER, SELFPAY ==
[2021-08-20 18:46] VITALS: BP 122/70; PULSE 81; RESP 16; TEMP 36.1; O2SAT 100
--- NOTE | 2021-08-20 20:43 | ED.EAR ---
HPI - Ear Problem General Chief complaint: Ear Stated complaint: sinus pressure, ear pain and lightheadedness Time Seen by Provider: 08/20/21 20:36 Source: RN notes reviewed History of Present Illness HPI Narrative: Patient presents emergency department from home for ear pain. Patient states she had pressure in bilateral ears for the past 2 days has been associate with mild rhinorrhea as well as pressure in the frontal sinus she denies any fevers or chills sore throat cough or any other symptoms. States she has not taken any medication for the symptoms she denies having any nausea vomiting denies any chance of Related Data Home Medications Medication Instructions Recorded Confirmed PNV,calcium 46-yebh-ortej acid tablet 07/01/20 07/01/20 [ Vitamin Plus Low Iron] Allergies Allergy/AdvReac Type Severity Reaction Status Date / Time No Known Allergies Allergy Verified 08/20/21 20:33 Review of Systems Review of Systems: Gen.: Denies fevers or chills ENT: See HPI Respiratory: Denies shortness of breath or cough CV: Denies chest pain or palpitations GI: Denies abdominal pain nausea, emesis denies Musculoskeletal: Denies back pain or muscle pain Neuro: Denies numbness, tingling, weakness or focal weakness Skin: Denies rash Except as documented, all other systems reviewed and negative PMFSH Past Medical History Medical History Family planning Hypokalemia Hypopigmentation Palpitations Surgical History Surgical History No pertinent past surgical history Social History Social History Smoking status: Never smoker Alcohol intake: current Alcohol use details: wine Substance use: never Substance use type: does not use Gender identity (if verbalized by the patient): Female Exam Narrative: APPEARANCE: No acute distress, nontoxic, resting in bed EYES: EOMI HEENT: Normocephalic, atraumatic, TMs clear bilaterally no erythema, bilateral turbinates boggy with clear rhinorrhea mild tenderness over frontal sinuses no tenderness over maxillary sinuses or mucosa moist no erythema exudate posterior pharynx RESPIRATORY: No respiratory distress Clear to auscultation bilaterally with no rhonchi wheezing or rales. CARDIOVASCULAR: Regular rate and rhythm without murmurs rubs or gallops. ABDOMINAL: Soft, nontender, nondistended, no rebound or guarding MUSCULOSKELETAl: Moves all extremities. No clubbing, cyanosis or edema. NEURO: Awake and alert. Following commands, speech normal, no focal deficits SKIN:: Warm, dry. No rashes lesions or abrasions PSYCHIATRIC: Normal affect/mood, Course Course Emergency Course: Discussed with patient results of workup and diagnosis. Discussed need for follow-up with primary care, proper use of medication, and reasons to return to the emergency department. Patient understands and agrees to current treatment plan Vital Signs Vital signs: Vital Signs Temperature 97 F L 08/20/21 18:46 Pulse Rate 81 08/20/21 18:46 Respiratory Rate 16 08/20/21 18:46 Blood Pressure 122/70 08/20/21 18:46 Pulse Oximetry 100 08/20/21 18:46 Temperature 97 F L 08/20/21 18:46 Pulse Rate 81 08/20/21 18:46 Respiratory Rate 16 08/20/21 18:46 Blood Pressure 122/70 08/20/21 18:46 Pulse Oximetry 100 08/20/21 18:46 Medical Decision Making Vital Signs Vital Signs: Vital Signs Temperature 97 F L 08/20/21 18:46 Pulse Rate 81 08/20/21 18:46 Respiratory Rate 16 08/20/21 18:46 Blood Pressure 122/70 08/20/21 18:46 Pulse Oximetry 100 08/20/21 18:46 Temperature 97 F L 08/20/21 18:46 Pulse Rate 81 08/20/21 18:46 Respiratory Rate 16 08/20/21 18:46 Blood Pressure 122/70 08/20/21 18:46 Pulse Oximetry 100 08/20/21 18:46 Discharge Plan [facility]charge [facility]
== END 2021-08-20 20:57 | disposition home or self-care (01) ==
LOC: ANHED 20:55
PROVIDERS: Emergency Provider Emergency Medicine
DX: J30.9 Allergic rhinitis, unspecified (principal)
CPT/HCPCS: 99283

== ENCOUNTER 2022-02-10 06:24 | Emergency (ER) | payer OTHER, SELFPAY ==
--- NOTE | ~2022-02-10 | XR_ITS ---
EXAMINATION: XR wrist LT min 3V DATE: 02/10/2022 07:04 INDICATION: Pain at the base of the left thumb TECHNIQUE: Posteroanterior, ulnar deviation, oblique, and lateral views of the left wrist were obtain ed. COMPARISON: none FINDINGS: Alignment is normal. No fracture. Joint spaces are normal. No erosions or osteophytosis. Soft tissues are unremarkable. IMPRESSION: 1. . Negative left wrist radiographs. Reviewed, dictated and finalized at location A.
[2022-02-10 06:49] VITALS: BP 122/69; PULSE 69; RESP 16; TEMP 36.4; O2SAT 100
--- NOTE | 2022-02-10 07:41 | ED.UPPEXIN ---
HPI - Extremity Injury (Upper) General Chief Complaint: Extremity Injury, Upper Stated Complaint: left wrist/hand pain Time Seen by Provider: 02/10/22 07:40 Source: patient Mode of arrival: ambulatory Limitations: no limitations History of Present Illness HPI narrative: Patient presents with pain at the base of the left thumb started 2 days ago. Patient denies any specific trauma. 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 Related Data Home Medications Medication Instructions Recorded Confirmed vitamin with calcium tablet 07/01/20 07/01/20 no.72-iron 27 mg-folic acid 1 mg tablet ( Vitamins Plus Low Iron) Allergies Allergy/AdvReac Type Severity Reaction Status Date / Time No Known Allergies Allergy Verified 02/10/22 06:49 Review of Systems Review of Systems: All systems reviewed & are unremarkable except as noted in HPI and below PMFSH Past Medical History Medical History Family planning Hypokalemia Hypopigmentation Palpitations Surgical History Surgical History No pertinent past surgical history Social History Social History Smoking status: Never smoker Alcohol intake: current Alcohol use details: wine Substance use: never Substance use type: does not use Gender identity (if verbalized by the patient): Female Exam Narrative: General appearance: Well-developed, well-nourished Skin: Normal color Head: Normocephalic, nontraumatic Eyes: Clear conjunctiva ENT: Oropharynx normal, ears normal, nose normal Neck: Supple, nontender Chest and respiratory: Airway patent, no respiratory distress, no accessory muscle use Heart: Regular rate/rhythm Abdomen: Soft, nontender, no organomegaly, quiet bowel sounds Vascular: Normal peripheral pulses, normal capillary refill. Musculoskeletal: Mild tenderness at the base of left thumb at the palmar area, no bruises, no swelling or rash, slight limited range of motion of the left thumb Neurologic: Alert and oriented ?3, SKETCHER is normal as tested, no gross motor deficit Course Vital Signs Vital signs: Vital Signs Temperature 36.4 C L 02/10/22 06:49 Pulse Rate 69 02/10/22 06:49 Respiratory Rate 16 02/10/22 06:49 Blood Pressure 122/69 10/27/22 06:49 Pulse Oximetry 100 02/10/22 06:49 Oxygen Delivery Room Air 02/10/22 06:49 Temperature 36.4 C L 02/10/22 06:49 Pulse Rate 69 02/10/22 06:49 Respiratory Rate 16 02/10/22 06:49 Blood Pressure 122/69 02/10/22 06:49 Pulse Oximetry 100 02/10/22 06:49 Oxygen Delivery Room Air 02/10/22 06:49 MDM - Extremity Injury (Upper) Differential Diagnosis Differential diagnosis: Likely other (Finger fracture, sprain, strain) Imaging Data Radiologist's impression: Impressions Wrist X-Ray 02/10/22 07:07 IMPRESSION: 1. . Negative left wrist radiographs. Critical Care Time Critical Care Time Critical Care Time: No Discharge Plan Discharge Clinical Impression: Left thumb sprain Patient Disposition: Home, Self-Care Condition: Stable Instructions: Antibiotic Form, Finger Sprain (ED) Additional Instructions: Return if symptoms are worsening , call your family physician for appointment, take Tylenol as as needed for aches and pain, continue home medications. Get thumb spica splint from [employer] Prescriptions: No Action Vitamin Plus Low Iron 27 mg iron- 1 mg tablet Follow-up/Referrals: PHYSICIAN,HEEL BRUSHER [Primary Care Prov
== END 2022-02-10 08:22 | disposition home or self-care (01) ==
PROVIDERS: Emergency Provider Emergency Medicine
DX: S63.602A Unspecified sprain of left thumb, initial encounter (principal); X58.XXXA Exposure to other specified factors, initial encounter
CPT/HCPCS: 73110; 99283

== ENCOUNTER 2022-08-05 04:58 | Emergency (ER) | payer OTHER, SELFPAY ==
[2022-08-05 05:01] VITALS: BP 125/74; PULSE 72; RESP 18; TEMP 36.8; O2SAT 100
--- NOTE | 2022-08-05 05:49 | ED.URI ---
HPI - URI/Sore Throat General Chief Complaint: Upper Respiratory Infection <Lynsey Marinelli MD - Last Filed: 08/06/22 05:42> Stated Complaint: sore throat <Lynsey Marinelli MD - Last Filed: 08/06/22 05:42> Time Seen by Provider: 08/05/22 05:43 <Lynsey Marinelli MD - Last Filed: 08/06/22 05:42> History of Present Illness HPI Narrative: Patient is a 27-year-old female presenting with URI symptoms. Patient states that about a day ago she developed sneezing and a mild cough. Last night she then developed a sore throat. States that she tried to use a throat spray without relief. Denies difficulty swallowing or shortness of breath. No chest pain. No fevers or chills, headache, numbness or weakness, abdominal pain, nausea or vomiting, diarrhea, dysuria, rashes. <Lynsey Marinelli MD - Last Filed: 08/06/22 05:42> Related Data Home Medications: Home Medications Medication Instructions Recorded Confirmed vitamin with calcium tablet 07/01/20 07/01/20 no.72-iron 27 mg-folic acid 1 mg tablet ( Vitamins Plus Low Iron) <Lynsey Marinelli MD - Last Filed: 08/06/22 05:42> Allergies/Adverse Reactions: Allergies Allergy/AdvReac Type Severity Reaction Status Date / Time No Known Allergies Allergy Verified 02/10/22 06:49 <Lynsey Marinelli MD - Last Filed: 08/06/22 05:42> Review of Systems Review of Systems: All systems reviewed & are unremarkable except as noted in HPI and below <Lynsey Marinelli MD - Last Filed: 08/06/22 05:42> [facility] Past Medical History Medical History: Medical History Family planning Hypokalemia Hypopigmentation Palpitations <Lynsey Marinelli MD - Last Filed: 08/06/22 05:42> Surgical History Surgical History: Surgical History No pertinent past surgical history <Lynsey Marinelli MD - Last Filed: 08/06/22 05:42> Social History Social History: Social History Smoking status: Never smoker Alcohol intake: current Alcohol use details: wine Substance use: never Substance use type: does not use Gender identity (if verbalized by the patient): Female <Lynsey Marinelli MD - Last Filed: 08/06/22 05:42> Exam Narrative: GENERAL: Well-appearing, well-nourished, and in no acute distress. HEAD: Normocephalic, atraumatic. EYES: PERRLA and EOMI. ENT: Nares clear, no rhinorrhea or epistaxis. Mucous membranes moist. Tonsils are mildly erythematous but there is no significant swelling, no purulence noted; handling her secretions well NECK: Supple. CHEST: Clear to auscultation. No respiratory distress. HEART: Regular rate and rhythm. Normal peripheral pulses. ABDOMEN: Soft, nontender, nondistended EXTREMITIES: Normal range of motion. No edema. SKIN: Warm, dry, no rash. NEURO: No focal deficits. Alert and oriented x3. PSYCH: Normal mood and affect. <Lynsey Marinelli MD - Last Filed: 08/06/22 05:42> Course Vital Signs Vital signs: Vital Signs Temperature 98.2 F 08/05/22 05:01 Pulse Rate 72 08/05/22 05:01 Respiratory Rate 18 08/05/22 05:01 Blood Pressure 125/74 08/05/22 05:01 Pulse Oximetry 100 08/05/22 05:01 Oxygen Delivery Room Air 08/05/22 05:01 Temperature 98.9 F 08/05/22 06:16 Pulse Rate 81 08/05/22 06:16 Respiratory Rate 16 08/05/22 08:32 Blood Pressure 118/79 08/05/22 06:16 Pulse Oximetry 99 08/05/22 06:16 Oxygen Delivery Room Air 08/05/22 06:16 <Lynsey Marinelli MD - Last Filed: 08/06/22 05:42> Vital Signs Temperature 98.2 F 08/05/22 05:01 Pulse Rate 72 08/05/22 05:01 Respiratory Rate 18 08/05/22 05:01 Blood Pressure 125/74 08/05/22 05:01 Pulse Oximetry 100 08/05/22 05:01 Oxygen Delivery Room Air 08/05/22 05:01 Tem
[2022-08-05] MEDS: ACETAMINOPHEN 500 MG TABLET 1000 MG PO (06:11)
[2022-08-05] MEDS: IBUPROFEN 400 MG TABLET 800 MG PO (06:11)
[2022-08-05 06:16] VITALS: BP 118/79; PULSE 81; RESP 18; TEMP 37.2; O2SAT 99
[2022-08-05 08:14] LABS: Influenza A QL RT-PCR Negative (Negative); Influenza B QL RT-PCR Negative (Negative); SARS-CoV-2 RNA PCR Negative (Negative)
[2022-08-05 08:15] LABS: RSV RNA, RT-PCR Negative (Negative); Strep Group A RT-PCR NOT DETECTED (Negative)
[2022-08-05 08:32] VITALS: RESP 16
== END 2022-08-05 08:33 | disposition home or self-care (01) ==
PROVIDERS: Emergency Medicine; Emergency Provider Emergency Medicine
DX: J06.9 Acute upper respiratory infection, unspecified (principal); J02.9 Acute pharyngitis, unspecified
CPT/HCPCS: 87637; 87651; 99282; 99283; A9270

== ENCOUNTER 2023-08-27 06:22 | Emergency (ER) | payer OTHER, SELFPAY ==
[2023-08-27] VITALS (9 sets, daily range): BP systolic 125–151; BP diastolic 50–103; PULSE 97–106; RESP 18–20; TEMP 36.4; O2SAT 99–100
--- NOTE | ~2023-08-27 | XR_ITS ---
XR chest 2V DATE: 08/27/2023 06:49 INDICATION: Palpitations TECHNIQUE: PA and lateral views COMPARISON: 04/11/2021 portable AP chest FINDINGS: Normal heart size. No hilar or mediastinal enlargement. No pulmonary infiltrate or consolid ation, pleural effusion or pulmonary vascular congestion or pneumothorax. Other than minimal thoracic levoscoliosis the included skeletal structures are unremarkable. IMPRESSION: No active cardiopulmonary disease Reviewed, dictated and finalized at location A.
--- NOTE | 2023-08-27 06:29 | ECG_ITS ---
SEE SCANNED COPY FOR CONFIRMED REPORT MTDD
[2023-08-27 06:42] LABS: Basophils Percent Auto 0.4 % (0.2-1.2); Eosinophils Percent Auto 0.2 % (0-4.4); Hematocrit 29.1 % (37.0-47.0); Hemoglobin 9.4 g/dL (12.0-15.0); Immature Granulocyte Absolute 0.04 K/mm3 (0.00-0.031); Immature Granulocyte Percent A 0.5 % (0-0.5); Lymphocytes Absolute Auto 2.48 K/mm3 (0.9-3.2); Lymphocytes Percent Auto 30.1 % (18.3-44.2); Mean Corpuscular HGB Conc 32.3 g/dl (32-36); Mean Corpuscular Hemoglobin 29.9 pg (26-34); Mean Corpuscular Volume 92.7 fl (80-100); Mean Platelet Volume 10.4 fl (7.4-10.4); Monocytes Absolute Auto 0.5 K/mm3 (0.1-0.6); Monocytes Percent Auto 6.2 % (2.6-8.5); Neutrophils Absolute Auto 5.2 K/mm3 (1.3-6.7); Neutrophils Percent Auto 62.6 % (45.5-73.1); Platelet Count Result 209 k/mm3 (150-375); Red Blood Count 3.14 M/mm3 (4.2-5.4); White Blood Count 8.2 K/mm3 (4.5-10.0)
[2023-08-27 06:53] LABS: INR 0.9; Partial Thromboplastin Time 25.6 Seconds (22.3-36.8)
[2023-08-27 06:54] LABS: Alanine Aminotransferase 101 U/L (6-35); Albumin Level 4.2 g/dL (3.5-5.1); Alkaline Phosphatase 73 U/L (38-126); Anion Gap 7 mmol/L (4-12); Aspartate Amino Transferase 150 U/L (14-36); Bilirubin,Total 0.5 mg/dL (0.2-1.3); Blood Urea Nitrogen 8 mg/dL (7-17); Calcium 9.8 mg/dL (8.4-10.2); Carbon Dioxide 26 mmol/L (22-30); Chloride 106 mmol/L (98-107); Estimated CRCL calculation 102 ml/min; Estimated Glomerular Filt Rate > 60; Glucose 99 mg/dL (65-110); Lipase 149 U/L (23-300); Potassium 3.7 mmol/L (3.4-5.0); Sodium 139 mmol/L (137-145)
[2023-08-27 07:05] LABS: Troponin I < 0.012 ng/mL (0.000-0.034)
--- NOTE | 2023-08-27 07:09 | PC.NURSE ---
report given to dolly stern. pt resting comfortably in bed. call light within reach.
--- NOTE | 2023-08-27 07:30 | ED.GENADULT ---
HPI - General Adult General Chief complaint: Arrhythmia/Palpitations Stated complaint: Racing heart while laying down. Time Seen by Provider: 08/27/23 07:00 History of Present Illness HPI narrative: Patient is a 28-year-old female who presents ER with elevated heart rate and reflux symptoms. Reports around 2:00 a.m. in time she lays down flat she feels like her heart rate is going fast and she also feels like the food contents in her stomach her going up towards her mouth. No vomiting. No fevers or chills or sweats. Patient is 3 days . She had a with moderate blood loss. She reports no other complications. She is supposed to follow-up in OB Clinic at [facility] in 6 weeks. She does not have an assigned physician. She was initially cared for through [facility] [place]. Reports mild fullness to her epigastrium. She reports her milk has not yet come in but she is planning on breast-feeding. She has been eating and drinking without difficulty. No complications. Related Data Home Medications Medication Instructions Recorded Confirmed vitamin with calcium tablet 07/01/20 07/01/20 no.72-iron 27 mg-folic acid 1 mg tablet ( Vitamins Plus Low Iron) Allergies Allergy/AdvReac Type Severity Reaction Status Date / Time No Known Allergies Allergy Verified 08/27/23 06:27 Review of Systems Review of Systems: All systems reviewed & are unremarkable except as noted in HPI and below Constitutional: Constitutional: Reports no additional constitutional complaints ENT: Reports system reviewed and no additional complaints, except as documented Cardiovascular: Cardiovascular: Reports rapid heart rate Respiratory: Respiratory: Reports no additional respiratory complaints Gastrointestinal: Gastrointestinal: Reports bloating, Reports heartburn, Denies diarrhea, Denies nausea and Denies vomiting Genitourinary: Genitourinary: Reports no additional female genitourinary complaints Musculoskeletal: Musculoskeletal: Reports no additional musculoskeletal complaints [facility] Past Medical History Medical History (Updated 08/27/23 @ 10:46 by Paramjit Padilla MD) Family planning Hypokalemia Hypopigmentation Palpitations Surgical History Surgical History (Updated 08/27/23 @ 07:41 by Paramjit Padilla MD) H/O section Social History Social History Smoking status: Never smoker Alcohol intake: current Alcohol use details: wine Substance use: never Substance use type: does not use Gender identity (if verbalized by the patient): Female Exam Narrative: GENERAL: Well-appearing, well-nourished, and in no acute distress. HEAD: Normocephalic, atraumatic. ENT: Mucous membranes moist. NECK: Supple. CHEST: Clear to auscultation. No respiratory distress. HEART: Tachycardic and regular. Normal peripheral pulses. ABDOMEN: Soft, nontender, nondistended. Steri-Strips in place over surgical site without any drainage. Appropriately tender. EXTREMITIES: Normal range of motion. No edema. SKIN: Warm, dry, no rash. NEURO: No focal deficits. Alert and oriented x3. PSYCH: Normal mood and affect. Course Course Emergency Course: Patient resting comfortably. Heart rate unchanged after L of fluid. Patient does have improved comfort with GI cocktail. Patient with multiple blood pressures in the 130s. Liver enzymes trending up after reviewing her [facility] my chart profile. I discussed the case with MFM at [facility] and Dr. Murry has accepted the patient to [facility]. Patient's significant other felt comfortable with private vehicle transfer. Vital Signs Vital signs: Vital Signs Temperature 97.6 F 08/27/23 06:24 Pulse Rate 97 08/27/23 06:24 Respiratory Rate 20 08/27/23 06:24 Blood Pressure 128/69 08/27/23 06:24 Pulse Oximetry 100 08/27/23 06:24
[2023-08-27] MEDS: SODIUM CHLORIDE 0.9% IV 1,000 ML 999 ML IV CONT (07:53)
[2023-08-27] MEDS: BELLADONNA ALK/PHENOB ELIX 10 ML, MAG HYDROX/ALUMINUM HYD/SIMETH 30 ML, LIDOCAINE HCL 2... PO (07:53)
--- NOTE | 2023-08-27 09:15 | ECG_ITS ---
SEE SCANNED COPY FOR CONFIRMED REPORT MTDD
[2023-08-27 09:20] LABS: Appearance Urine Clear (Clear); Bacteria Urine None Seen /hpf; Bilirubin Urine Negative (Negative); Blood Urine 3+ (Negative); Color Urine Yellow (Yellow); Glucose Urine UA Negative (Negative); Ketones Urine Negative (Negative); Leukocyte Esterase Ur Trace LEU/UL (Negative); Nitrate Urine Negative (Negative); Non Pathogenic Casts 0-2; Protein Urine Negative (Negative); Specific Grav Ur 1.005 (1.001-1.035); Squamous Epithelial Cell Urine Occasional /hpf (Few); Urobilinogen Urine 0.2 mg/dL (<2.0); WBC Urine 0-5 /hpf (0-3); pH Urine 6.5 (5.0-9.0)
[2023-08-27 09:27] LABS: Add Urine Microscopic? YES
== END 2023-08-27 11:13 | disposition short-term general hospital (02) ==
PROVIDERS: Preventive Medicine Aerospace Medicine; Emergency Provider Emergency Medicine
DX: O90.89 Other complications of the puerperium, not elsewhere classified (principal); R74.01 Elevation of levels of liver transaminase levels; R03.0 Elevated blood-pressure reading, without diagnosis of hypertension; K21.9 Gastro-esophageal reflux disease without esophagitis
CPT/HCPCS: 36415; 71046; 80053; 81001; 83690; 84484; 85025; 85610; 85730; 93005; 96360; 99284; A9270; J7030